=== PATIENT | female | born 1965 | race Two or more races ===

== ENCOUNTER 2016-03-16 02:39 | Emergency (ER) | payer OTHER ==
[~2016-03-16] VITALS: Ht 152.4 cm; Wt 61.4 kg
[2016-03-16 02:52] VITALS: Ht 152.4 cm; Wt 61.4 kg
[2016-03-16] MEDS ORDERED: SOD CHLORIDE 0.9% 1,000 ML IV STA (05:08)
[2016-03-16] MEDS ORDERED: ONDANSETRON 4 MG INJ IV STA (05:08)
[2016-03-16 05:50] VITALS: BP 132/85; PULSE 87; RESP 24; TEMP 98
[2016-03-16 05:57] LABS: ADD UMIC YES; URINE BILIRUBIN (Dip) 1+ (NEGATIVE); URINE BLOOD (Dip) 2+ (NEGATIVE); URINE COLOR YELLOW (YELLOW); URINE KETONES (Dip) 40 (NEGATIVE); URINE LEUKOCYTE ESTERASE (Dip) NEGATIVE (NEGATIVE); URINE NITRITE (Dip) NEGATIVE (NEGATIVE); URINE TOTAL PROTEIN (Dip) TRACE (NEGATIVE); URINE UROBILINOGEN (Dip) 0.2 E.U./dL (0.1-1.0)
[2016-03-16 06:07] LABS: POTASSIUM 3.7 mmol/L (3.5-5.1)
[2016-03-16 06:09] LABS: ALBUMIN/GLOBULIN RATIO 1.37; BILIRUBIN,INDIRECT 0.7 mg/dl (0-1.1); BILIRUBIN,TOTAL 0.7 mg/dl (0.2-1.3); CREATININE 0.65 mg/dl (0.44-1.00); TOTAL PROTEIN 6.9 g/dl (6.1-8.1)
[2016-03-16 06:10] LABS: CALCIUM 9.2 mg/dl (8.4-10.2)
[2016-03-16] MEDS ORDERED: ONDA4TAB14 PO (06:12)
[2016-03-16 06:13] LABS: HEMATOCRIT 41.5 % (37.0-47.0); LYMPHOCYTES # 0.7 10^3/ul (0.8-2.9); LYMPHOCYTES % 4.7 % (15.0-51.0); MEAN CORPUSCULAR HEMOGLOBIN 31.5 pg (29.0-33.0); MEAN CORPUSCULAR HGB CONC 33.8 g/dl (32.0-37.0); MEAN CORPUSCULAR VOLUME 92.9 fl (82.0-101.0); MONOCYTE # 0.1 10^3/ul (0.3-0.9); MONOCYTES % 0.5 % (0.0-11.0); NEUTROPHIL # 14.9 10^3/ul (1.6-7.5); NEUTROPHILS % 94.8 % (39.0-77.0); PLATELET COUNT 334 10^3/UL (140-440); RED BLOOD COUNT 4.46 10^6/ul (4.20-5.40); RED CELL DISTRIBUTION WIDTH 14.3 % (11.5-14.5); UNCORRECTED WBC 15.7 10^3/ul (4.8-10.8); WHITE BLOOD COUNT 15.7 10^3/ul (4.8-10.8)
[2016-03-16 06:21] LABS: CONDITION 1; LH ANALYZER COMMENTS 1
[2016-03-16 06:22] LABS: TROPONIN-I 0.016 ng/ml (0.00-0.12)
--- NOTE | 2016-03-16 06:56 | ERD ---
ER Documentation Chief Complaint Date/Time DATE: 03/16/16 TIME: 06:54 Chief Complaint pt reports n/v since midnight HPI Patient is a 50-year-old female with high blood pressure and diabetes who presents with abdominal pain. She says that her abdomen feels "heavy". She has vomiting and diarrhea. She also had bumps on her skin. She says "I think I have food poisoning". She said that it started at 11:30 PM. She feels much better after Zofran and wants to go home. She does not want to stay for results of her laboratory studies. ROS All systems reviewed and are negative except as per history of present illness. Medications Home Meds Active Scripts Ondansetron (Ondansetron Odt) 4 Mg Tab.rapdis, 4 MG PO Q6H Y for NAUSEA AND/OR VOMITING, #30 TAB Prov:NATALIE LOYD MD 03/16/16 Allergies Allergies: Coded Allergies: No Known Allergy (Unverified , 03/16/16) PMhx/Soc History of Surgery: No Anesthesia Reaction: No Hx Neurological Disorder: No Hx Respiratory Disorders: No Hx Cardiac Disorders: No Hx Psychiatric Problems: No Hx Miscellaneous Medical Probl: Yes (DM, HTN, HIGH CHOLESTEROL) Hx Alcohol Use: No Hx Substance Use: No Hx Tobacco Use: No Smoking Status: Never smoker FmHx Family History: No diabetes Physical Exam Vitals Vital Signs Date Time Temp Pulse Resp B/P Pulse Ox O2 Delivery O2 Flow Rate FiO2 03/16/16 05:50 98.0 87 24 132/85 100 Room Air 03/16/16 02:52 97.8 108 18 121/76 98 Physical Exam Const: No acute distress Head: Atraumatic Eyes: Normal Conjunctiva ENT: Normal External Ears, Nose and Mouth. Neck: Full range of motion..~ No meningismus. Resp: Clear to auscultation bilaterally Cardio: Regular rate and rhythm, no murmurs Abd: Soft, non tender, non distended. Normal bowel sounds Skin: No petechiae or rashes Back: No midline or flank tenderness Ext: No cyanosis, or edema Neur: Awake and alert Psych: Normal Mood and Affect Result Diagram: 03/16/1630 03/16/1630 Results 24 hrs Laboratory Tests Test 03/16/16 05:30 Alanine Aminotransferase (ALT/SGPT) 24IU/L Albumin 4.0g/dl Albumin/Globulin Ratio 1.37 Alkaline Phosphatase 43IU/L Anion Gap 21 Aspartate Amino Transf (AST/SGOT) 27IU/L Basophils # 0.010^3/ul Basophils % 0.0% Blood Urea Nitrogen 24mg/dl Calcium Level 9.2mg/dl Carbon Dioxide Level 20mmol/L Chloride Level 100mmol/L Creatinine 0.65mg/dl Direct Bilirubin 0.00mg/dl Eosinophils # 0.010^3/ul Eosinophils % 0.0% Globulin 2.90g/dl Glucose Level 296mg/dl Hematocrit 41.5% Hemoglobin 14.0g/dl Indirect Bilirubin 0.7mg/dl Lipase 116U/L Lymphocytes # 0.710^3/ul Lymphocytes % 4.7% Mean Corpuscular Hemoglobin 31.5pg Mean Corpuscular Hemoglobin Concent 33.8g/dl Mean Corpuscular Volume 92.9fl Mean Platelet Volume 8.0fl Monocytes # 0.110^3/ul Monocytes % 0.5% Neutrophils # 14.910^3/ul Neutrophils % 94.8% Nucleated Red Blood Cells # 0.010^3/ul Nucleated Red Blood Cells % 0.0/100WBC Platelet Count 35870^3/UL Potassium Level 3.7mmol/L Red Blood Count 4.4610^6/ul Red Cell Distribution Width 14.3% Sodium Level 137mmol/L Total Bilirubin 0.7mg/dl Total Protein 6.9g/dl Troponin I 0.016ng/ml White Blood Count 15.710^3/ul Current Medications Medications (Trade) Dose Ordered Sig/Mary Route PRN Reason Start Time Stop Time Status Last Admin Dose Admin Sodium Chloride (NS) 1,000 ml @ 1,000 mls/hr Q1H STAT IV 03/16/16 05:08 03/16/16 06:07 DC 03/16/16 06:05 Ondansetron HCl (Zofran Inj) 4 mg ONCE STAT IV 03/16/16 05:08 03/16/16 05:09 DC 03/16/16 06:05 Procedures/MDM EKG read by me: Rate/Rhythm: Regular rate and rhythm at a normal rate Intervals: Normal Impression: No evidence of ischemia or arrhythmia Patient is a 50-year-old female with hypertension and diabetes who presents with abdominal pain and vomiting. She also has diarrhea. I believe this is most likely viral syndrome. She has no abdominal pain on exam currently. She was given Zofran and feels better and is not vomiting. She wants to go home and does not want to wait for her laboratory results. I will give her a prescription for Zofran and she can follow-up with her primary doctor within 24 hours for reevaluation. She can return sooner for any worsening symptoms. The patient understands the plan and is okay for discharge at this time. Once her laboratory studies did return I reviewed them. She has a leukocytosis as well as hyperglycemia. At this point I doubt diabetic ketoacidosis. I doubt appendicitis, cholecystitis, pink otitis, or bowel obstruction. I believe outpatient management is appropriate but she will need close follow-up with her primary doctor. She can return sooner for any worsening symptoms. Departure Diagnosis: Primary Impression: Vomiting Vomiting type: unspecified Vomiting Intractability: non-intractable Nausea presence: with nausea Qualified Code: R11.2 - Non-intractable vomiting with nausea, unspecified vomiting type Additional Impression: Abdominal pain Abdominal location: generalized Qualified Code: R10.84 - Generalized abdominal pain Condition: Fair Patient Instructions: Abdominal Pain, Vomiting (6Y-Adult) Additional Instructions: Visite a opal arreaga para un EXAMEN.Regrese a estas instalaciones si no se mejora satinder esperbamos o satinder fanny christian. NATALIE LOYD MD Mar 16, 2016 06:56
[2016-03-16 06:58] LABS: ICTOTEST NEGATIVE (NEGATIVE)
[2016-03-16 07:01] LABS: MUCUS,URINE MANY
== END 2016-03-16 06:20 | disposition home or self-care (01) ==
LOC: E/R 02:39
DX: R11.2 Nausea with vomiting, unspecified (principal); I10 Essential (primary) hypertension; E11.9 Type 2 diabetes mellitus without complications; R10.84 Generalized abdominal pain
CPT/HCPCS: 36415; 80053; 81001; 83690; 84484; 85025; 93005; 96374; J2405; J7030; Z7502; 81003